=== PATIENT | male | born 1945 | race Caucasian/White ===

== ENCOUNTER 2017-12-26 09:55 | Day surgery (SDC) | payer OTHER ==
--- NOTE | 2017-12-25 13:47 | RAD REPORT ---
EXAM DESCRIPTION: RAD - Chest Pa And Lat (2 Views) - 12/25/2017 1:37 pm CLINICAL HISTORY: Preop chest, pending prostate surgery COMPARISON: February 2017 TECHNIQUE: PA and lateral views of the chest were obtained. FINDINGS: The lungs are clear of failure, infiltrate or mass lesion. CABG surgical changes are prese nt with scarring in the left lung base. Heart size is normal and central vasculature is within norm al limits. No pleural effusion or pneumothorax seen. Degenerative change present at each shoulder j oint. No acute findings seen. Proximal left humerus shows evidence for old fracture. No aortic abnorm ality. IMPRESSION: No acute cardiopulmonary process. No suspicious change from prior imaging.
[2017-12-25 14:20] LABS: Urine Appearance CLEAR; Urine Bilirubin NEGATIVE (NEG); Urine Blood NEGATIVE (NEG); Urine Color YELLOW; Urine Glucose 3+ (NEG); Urine Protein 2+ (NEG); Urine Specific Gravity 1.025 (1.005-1.030); Urine Urobilinogen 0.2 mg/dL (0.2-1.0); Urine pH 5.5 (5.0-7.0)
[2017-12-25 14:44] LABS: Potassium 4.5 mEq/L (3.6-5.0)
[2017-12-25 14:45] LABS: Protime INR 0.92
[2017-12-25 14:46] LABS: Absolute Lymphocytes (CBC) 2.9 K/uL (0.7-4.9); Absolute Monocytes 0.6 K/uL (0.1-1.3); Basophils % 0.9 % (0-1.3); Eosinophils % 2.7 % (0-4.4); Hematocrit 43.4 % (39.6-49.0); Lymphocytes % 32.4 % (15.3-44.8); MCH 28.8 pg (27.0-35.0); MPV 10.3 fL (7.6-11.3); Monocytes % 6.7 % (3.3-12.3); RBC Red Blood Cell Count 4.99 M/uL (4.33-5.43)
[2017-12-25 14:58] LABS: Urine Microscopic Reflex ORDER UMIC
--- NOTE | 2017-12-25 14:59 | EKG ---
Test Date: 2017-12-25 Test Time: 13:14:35 Airplane Charter Clerk: SHIRLEY MEASUREMENT RESULTS: Intervals: Rate: 54 TN: 176 QRSD: 88 QT: 472 QTc: 447 [place]: P: 1 TN: 176 QRS: -38 T: 10 INTERPRETIVE STATEMENTS: Sinus bradycardia Left axis deviation Abnormal ECG Compared to ECG 08/14/1993 12:02:00 Left-axis deviation now present Electronically Signed On 12-25-17 14:58:53 CDT by Jaspreet Currie
[2017-12-25 15:13] LABS: Urine RBC <5 /HPF (NONE SEEN)
[2017-12-25 15:14] LABS: Urine Bacteria <20 /HPF (NONE SEEN); Urine Culture Reflex Order NOT NEEDED
[~2017-12-26 09:55] MED LIST: GENTAMICIN 100 MG/100 ML BAG 100 MG/100 ML BAG IV SCH
--- OUTSIDE RECORDS SUMMARY | 2017-12-26 09:59 | XMS REPORT | Clinical Summary ---
:1945 Author Organization [facility] Address [address] [place] [address] Care Team Providers Name Role Phone Edwin Mitchell MD Primary Care Provider Allergies No Known Allergies Current Medications Prescription Sig. Disp. Refills Start Date End Date Status metFORMIN (GLUCOPHAGE) Take 500 mg by mouth Active 500 MG tablet 2 (two) times a day with meals. glimepiride (AMARYL) 4 Take 4 mg by mouth 2 Active MG tablet (two) times a day. amLODIPine (NORVASC) 10 Take 10 mg by mouth Active MG tablet daily. atorvastatin (LIPITOR) Take 10 mg by mouth Active 10 MG tablet daily. sitaGLIPtin (JANUVIA) Take 100 mg by mouth Active 100 MG tablet daily. tamsulosin (FLOMAX) 0.4 Take 0.4 mg by mouth Active mg capsule,extended nightly. release 24hr acetaminophen-codeine Take 1 tablet by Active (TYLENOL #3) 300-30 mg mouth every 6 (six) per tablet hours as needed for moderate pain. insulin GLARGINE Inject 5 Units under Active (LANTUS) 100 unit/mL the skin daily. am injection amIODarone (PACERONE) Take 200 mg by mouth Active 200 MG tablet 2 (two) times a day. isosorbide mononitrate Take 30 mg by mouth Active (IMDUR) 30 MG 24 hr daily. tablet apixaban (ELIQUIS) 5 mg Take by mouth. Active tablet furosemide (LASIX) 40 MG Take 40 mg by mouth Active tablet daily. metoprolol tartrate Take 50 mg by mouth. Active (LOPRESSOR) 50 MG tablet meclizine (ANTIVERT) 25 Take 25 mg by mouth Active mg tablet 2 (two) times a day. As needed gabapentin (NEURONTIN) Take 300 mg by mouth Active 300 MG capsule nightly. As needed omeprazole (PriLOSEC) 20 Take 20 mg by mouth Active MG capsule daily. aspirin (ECOTRIN) 81 MG Take 81 mg by mouth Active enteric coated tablet daily. multivitamin with Take 1 tablet by Active minerals tablet mouth daily. 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) 04/13/2016 Hyperlipidemia 04/11/2016 Coronary artery disease due to lipid rich plaque 04/10/2016 HTN (hypertension) 04/10/2016 DM (diabetes mellitus) 04/10/2016 CHF (congestive heart failure) 04/10/2016 Family History Medical History Relation Name Comments Heart disease Father Stroke Mother Relation Name Status Comments Father Mother Social History Tobacco Use Types Packs/Day Years Used Date Never Smoker Alcohol Use Drinks/Week oz/Week Comments No Sex Assigned at Date Recorded Not on file Last Filed Vital Signs Not on file Plan of Treatment Health Maintenance Due Date Last Done Comments DIABETIC FOOT EXAM 11/09/1957 DIABETIC RETINAL EYE EXAM 11/09/1957 URINE MICROALBUMIN 11/09/1957 COLON CANCER SCREENING 11/09/1997 SHINGRIX VACCINE (#1) 11/09/1997 ZOSTER VACCINE 2007 PNEUMOCOCCAL POLYSACCHARIDE VACCINE AGE 65 AND OVER 11/09/2012 PNEUMOCOCCAL-13 11/09/2012 INFLUENZA VACCINE 02/27/2018 Implants Implanted Type Area Outreach Nurse Device Expiration Model / Identifier Date Serial / Lot Lead Pace Naveen Mycrdl Unipol Tmpry Streamline - [id number] Cardiovascular N/A : [employer] [facility] - 12/30/2017 [id number] / Implanted: Qty: 2 on 04/12/2016 by David Quigley MD Implants Heart CARDIAC SRGRY / [id number] Lead Pace Naveen Mycrdl Unipol Tmpry Streamline - [id number] Cardiovascular N/A : N/A [employer] [facility] - 10/20/2017 [id number] / Implanted: Qty: 1 on 04/12/2016 by David Quigley MD Implants CARDIAC SRGRY / Bee Spring Perph Vasclr Ptfe 1.2x10cm 1.65mm - [id number] Vascular Graft N/A: BARD PERIPHERAL 10/24/2020 [id number] / Implanted: Qty: 1 on 04/12/2016 by David Quigley MD Heart VASCULAR / [id number] Results Not on fileafter 12/25/2016 Insurance Payer Benefit Plan / Group Subscriber ID Type Phone Address HU[employer]NA MEDICARE HUMANA MEDICARE PPO/PFFS/ERS [facility] xxxxxxxxx [place] [address]
[2017-12-26] MEDS ORDERED: GENTAMICIN 100 MG/100 ML BAG 100 MG/100 ML BAG IV ONE (10:24)
[2017-12-26] MEDS ORDERED: NA CHLORIDE 0.9% 1,000 ML ONE (10:24)
[2017-12-26] MEDS ORDERED: PROPOFOL 200 MG/20 ML VIAL IV ONE (12:33)
[2017-12-26] MEDS ORDERED: FENTANYL CITR 100 MCG/2 ML ONE (12:35)
[2017-12-26] MEDS ORDERED: MIDAZOLAM HCL 2 MG/2 ML INJ ONE (12:35)
[2017-12-26] MEDS ORDERED: LIDOCAINE 2% INJ, MPF 2 ML 1 ML ONE (12:36)
[2017-12-26] MEDS ORDERED: ASPIRIN 325 MG TAB PO ONE (15:00)
--- NOTE | 2017-12-26 15:47 | EKG ---
Test Date: 2017-12-26 Test Time: 13:46:49 Child And Adolescent Psychiatrist: ROBBI MEASUREMENT RESULTS: Intervals: Rate: 79 [place]: QRSD: 86 QT: 400 QTc: 458 [place]: P: [place]: QRS: -38 T: 56 INTERPRETIVE STATEMENTS: Atrial fibrillation Left axis deviation Abnormal ECG Compared to ECG 12/25/2017 13:14:35 Sinus bradycardia no longer present Electronically Signed On 12-26-17 15:46:11 CDT by Nelson Lorenz
[2017-12-26 16:37] VITALS: BP 147/64; TEMP 97.8; O2SAT 98
== END 2017-12-26 15:20 | disposition home or self-care (01) ==
LOC: OR 09:55
PROVIDERS: ATTEND Urology
PROC: 0T7D8DZ Dilation of Urethra with Intraluminal Device, Via Natural or Artificial Opening Endoscopic (ICD-10-PCS; principal; 2017-12-26 12:15)
DX: N40.1 Benign prostatic hyperplasia with lower urinary tract symptoms (principal); R39.12 Poor urinary stream; E11.9 Type 2 diabetes mellitus without complications; I10 Essential (primary) hypertension; I25.10 Atherosclerotic heart disease of native coronary artery without angina pectoris; Z95.1 Presence of aortocoronary bypass graft; Z95.5 Presence of coronary angioplasty implant and graft; Z88.8 Allergy status to other drugs, medicaments and biological substances
CPT/HCPCS: 36415; 71046; 80048; 82962; 85025; 85610; 85730; 87086; 87088; 93005 ×2; C9739; J1580; J2250; J3010; J3490; J7030; 81003; 81015

== ENCOUNTER 2020-11-26 07:06 | Day surgery (SDC) | payer OTHER ==
--- NOTE | 2020-11-24 12:53 | EKG ---
Test Date: 2020-11-23 Test Time: 14:07:53 Patternmaker Wood: BRYN MEASUREMENT RESULTS: Intervals: Rate: 94 MS: QRSD: 88 QT: 404 QTc: 505 [place]: P: [place]: QRS: -51 T: 60 INTERPRETIVE STATEMENTS: Atrial flutter with variable AV block Left anterior fascicular block Possible Anterior infarct, age undetermined Prolonged QT Abnormal ECG Compared to ECG 12/26/2017 13:46:49 Left anterior fascicular block now present Myocardial infarct finding now present Prolonged QT interval now present Atrial fibrillation no longer present Left-axis deviation no longer present Electronically Signed On 11-24-20 12:52:05 CDT by Jaspreet Currie
[2020-11-26] MEDS ORDERED: NA CHLORIDE 0.9% 1,000 ML ONE (07:41)
[2020-11-26] MEDS ORDERED: LIDOCAINE 1% W/EPI 1:100,000 MDV 20 ML VIAL ONE (08:56)
[2020-11-26] MEDS ORDERED: propofoL 200 MG/20 ML VIAL IV ONE (09:05)
[2020-11-26] MEDS ORDERED: LIDOCAINE 2% MPF 5 ML VIAL ONE (09:05)
--- NOTE | 2020-11-26 10:13 | P.BOP ---
Preoperative diagnosis: scc scalp Postoperative diagnosis: same Primary procedure: WLE with FS Secondary procedure: Allograft Hotel Operations Manager: NONE,NONE Estimated blood loss: <5ml Specimen: scalp, suture 12 oclock (most anterior aspect) Findings: negative peripheral and depp margins Anesthesia: MAC Complications: None Implants: Theraskin to scalp wound Fluids & blood products: 200ml crystalloid Transferred to: Recovery Room Condition: Good
[2020-11-26 13:15] VITALS: TEMP 96.7
[2020-11-26 13:16] VITALS: BP 137/64; O2SAT 99
--- NOTE | 2020-11-26 21:02 | OP ---
Surgeon: Shey Pérez MD Preoperative Diagnosis: Squamous cell carcinoma of scalp. Postoperative Diagnosis: Squamous cell carcinoma of scalp. Procedure Performed: Wide local excision with frozen section and application of allograft, total siz e of defect 2 x 2.1 cm. Indication For Procedure: Mr. Peoples was referred by the predictive maintenance technician following a shave biopsy demo nstrating squamous cell carcinoma adjacent to an area of prior superficial radiation therapy. He is under concurrent treatment for an additional skin cancer of the anterior scalp. Due to prior radiati on, surgical excision was recommended. Procedure In Detail: The patient was brought to the operating room. He was placed under monitored a nesthesia care. The area around the prior biopsy site was noted to be persistently scabbed. The are a was cleaned with alcohol and injected with 4 mL of 1% lidocaine with epinephrine. During the proce dure, the patient had residual sensation and an additional injection of Marcaine was given to the are a. The scalp was prepped with Betadine and draped in a sterile fashion. The lesion was examined and was noted to be about 7 x 5 mm. A 5 to 7 mm gross margin around the lesion was designed and Bovie e lectrocautery was used to incise through the skin and subcutaneous tissues, elevating the specimen in the loose areolar tissue. The specimen was marked with a suture indicating 12 o'clock confirming to the anterior most aspect of the incision. The specimen was sent to Pathology for frozen section whi ch confirmed atypical squamous cells with negative margins peripherally and on the deep margin. Eval uation of the defect was undertaken following obtaining negative margins. The defect was full-thickn ess skin and measured 21 x 20 mm. A Theraskin allograft was applied to the defect and secured using interrupted silk suture. A Xeroform bolster was applied to the area and tied securely to aid in adhe rence of the graft to the underlying scalp tissue. The procedure was concluded. The patient was ret urned to Recovery in stable condition. Disposition: The patient will be discharged home later today in the care of his family and follow up with Dr. Pérez in 10 days for removal of the bolster. JOSE D/KATHRYNL Voice ID: [id number] Report ID: [id number]
== END 2020-11-26 11:10 | disposition home or self-care (01) ==
LOC: PRE 07:06
PROVIDERS: ATTEND Otolaryngology
PROC: 0JX00ZB Transfer Scalp Subcutaneous Tissue and Fascia with Skin and Subcutaneous Tissue, Open Approach (ICD-10-PCS; 2020-11-26)
PROC: 0JB00ZZ Excision of Scalp Subcutaneous Tissue and Fascia, Open Approach (ICD-10-PCS; 2020-11-26)
PROC: 0JB00ZZ Excision of Scalp Subcutaneous Tissue and Fascia, Open Approach (ICD-10-PCS; principal; 2020-11-26 08:15)
DX: C44.42 Squamous cell carcinoma of skin of scalp and neck (principal); L57.0 Actinic keratosis; E66.3 Overweight; Z20.822 Contact with and (suspected) exposure to COVID-19
CPT/HCPCS: 93005; 82947 ×2; 88331; 88332; 88305; 11423; 15275; U0003; J2704; J7030